=== PATIENT | male | born 1995 | race Caucasian/White ===

== ENCOUNTER 2017-12-08 21:48 | Emergency (ER) | payer OTHER ==
[2017-12-08 22:01] VITALS: RESP 18
--- NOTE | 2017-12-08 23:09 | XR ---
EXAMINATION TYPE: XR shoulder complete LT DATE OF EXAM: 12/08/2017 COMPARISON: NONE HISTORY: Fell on the arm. Pain. TECHNIQUE: 3 views FINDINGS: There is malalignment of the AC joint. This measures 6 mm. Glenohumeral joint is anatomic. I see no fracture. IMPRESSION: Malalignment of the AC joint consistent with ligamentous tear. No fracture seen. There is probably widening and ligamentous tear involving the coracoclavicular ligament.
[2017-12-08] MEDS ORDERED: IBUPROFEN 600 MG STARTER PACK 4 TAB BTL PO STA (23:19)
[2017-12-08] MEDS ORDERED: ACET/COD 300 MG/30 MG STARTER PACK 6 TAB BTL PO STA (23:19)
--- NOTE | 2017-12-08 23:21 | ED ---
Upper Extremity HPI - General Chief Complaint: Extremity Injury, Upper Stated Complaint: Shoulder Pain Time Seen by Provider: 12/08/17 22:11 Source: patient, RN notes reviewed, old records reviewed Mode of arrival: ambulatory Limitations: no limitations - History of Present Illness Initial Comments: This patient is a 22-year-old male chief complaint of left shoulder pain. He reports it today he fell backwards onto the shoulder and back since then he's not able to lift his arm. Patient states that he has occasional numbness and tingling in the fingers and elbow. Your ports for range of motion of the hand and wrist and elbow. No history of injury to the left shoulder. PAtient is right handed. - Related Data Previous Rx's Medication Instructions Recorded Ibuprofen [Motrin] 600 mg PO Q8HR PRN #20 tab 12/08/17 Allergies Allergy/AdvReac Type Severity Reaction Status Date / Time ranitidine Allergy Unknown Verified 12/08/17 22:18 Review of Systems ROS Statement: Those systems with pertinent positive or pertinent negative responses have been documented in the HPI. ROS Other: All systems not noted in ROS Statement are negative. Constitutional: Denies: chills Eyes: Denies: eye pain ENT: Denies: ear pain Respiratory: Denies: cough, dyspnea Cardiovascular: Denies: chest pain Endocrine: Denies: fatigue Gastrointestinal: Denies: abdominal pain, nausea Genitourinary: Denies: urgency Musculoskeletal: Reports: arthralgia Neurological: Denies: headache, weakness Psychiatric: Denies: anxiety, depression Hematological/Lymphatic: Denies: easy bleeding Past Medical History Past Medical History: No Reported History History of Any Multi-Drug Resistant Organisms: None Reported Additional Past Surgical History / Comment(s): clft palate repair Past Psychological History: No Psychological Hx Reported Smoking Status: Never smoker Past Alcohol Use History: None Reported Past Drug Use History: None Reported General Exam - General Exam Comments Initial Comments: Patient is a 22 year old male, moderate discomfort. Limitations: no limitations General appearance: alert, in no apparent distress Head exam: Present: atraumatic, normocephalic, normal inspection Eye exam: Present: normal appearance, PERRL, EOMI. Absent: scleral icterus, conjunctival injection, periorbital swelling ENT exam: Present: normal exam, mucous membranes moist Neck exam: Present: normal inspection. Absent: tenderness, meningismus, lymphadenopathy Respiratory exam: Present: normal lung sounds bilaterally. Absent: respiratory distress, wheezes, rales, rhonchi, stridor Cardiovascular Exam: Present: regular rate, normal rhythm, normal heart sounds. Absent: systolic murmur, diastolic murmur, rubs, gallop, clicks GI/Abdominal exam: Present: soft, normal bowel sounds. Absent: distended, tenderness, guarding, rebound, rigid Left Shoulder Exam: Present: tenderness, swelling, ecchymosis, tenderness over AC joint. Absent: normal inspection, full ROM, laceration Upper Arm exam: Present: normal inspection, full ROM Elbow exam: Present: normal inspection, full ROM Forearm Wrist exam: Present: normal inspection, full ROM Vascular: Present: normal capillary refill Back exam: Present: normal inspection Neurological exam: Present: alert, oriented X3, CN II-XII intact Psychiatric exam: Present: normal affect, normal mood Skin exam: Present: warm (d), dry, intact, normal color. Absent: rash Course Vital Signs 12/08/17 12/09/17 21:57 00:10 Temperature 99.3 F 98.4 F Pulse Rate 69 63 Respiratory 18 18 Rate Blood Pressure 125/87 130/69 O2 Sat by Pulse 100 97 Oximetry Procedures - Orthopedic Splinting/Casting Injury #1 Side: left Upper Extremity Injury Location: shoulder Upper Extremity Immobilizer: sling/shoulder immobilizer Medical Decision Making - Medical Decision Making 22-year-old male with left shoulder pain after a fall. He is tender over the AC joint. X-ray shows evidence of AC separation as well as possible Coracoacromial ligament separation. Patient was placed in a sling, given the short course of pain medicine and follow up with PCP. Discussed ortho follow-up as well. All questions answered return parameters were discussed. Given a note for work. - Radiology Data Radiology results: report reviewed Malalignment of the AC joint consistent with ligamentous tear. No fracture noted. Widening in ligamentous tear involving the coracoclavicular ligament. Disposition Clinical Impression: Derangement of left acromioclavicular joint, Shoulder strain Disposition: HOME SELF-CARE Condition: Good Instructions: Acromioclavicular Separation (ED), Rotator Cuff Injury (ED) Additional Instructions: Patient advised to follow-up with primary care provider and oil program compliance specialist. Take anti-inflammatory medicine as prescribed. Return to emergency department if any alarming signs or symptoms occur. Prescriptions: Ibuprofen [Motrin] 600 mg PO Q8HR PRN #20 tab PRN Reason: Pain Is patient prescribed a controlled substance at d/c from ED?: No When asked, does pt state using other controlled substances?: No If prescribed controlled substance>3 days was MAPS reviewed?: No If opioid is for acute pain is fill amount 7 days or less?: No If Rx opioid, was Start Talking consent form obtained?: No Referrals: None,Stated [Primary Care Provider] - 1-2 days Murtaza Morris DO [Doctor of Osteopathic Medicine] - 1-2 days Time of Disposition: 23:19
[2017-12-09 00:12] VITALS: BP 130/69; PULSE 63; TEMP 98.4
== END 2017-12-09 00:10 | disposition home or self-care (01) ==
LOC: EC 21:48
DX: S46.912A Strain of unspecified muscle, fascia and tendon at shoulder and upper arm level, left arm, initial encounter (principal); S43.102A Unspecified dislocation of left acromioclavicular joint, initial encounter; Z88.8 Allergy status to other drugs, medicaments and biological substances; W01.0XXA Fall on same level from slipping, tripping and stumbling without subsequent striking against object, initial encounter
CPT/HCPCS: 99284

== ENCOUNTER 2021-07-23 15:32 | Emergency (ER) | payer OTHER ==
[2021-07-23 17:54] VITALS: BP 123/64; PULSE 73; RESP 18; TEMP 98.4
--- NOTE | 2021-07-23 19:05 | ED ---
General Adult HPI - General Chief complaint: Recheck/Abnormal Lab/Rx Stated complaint: SOB Source: patient Mode of arrival: ambulatory Limitations: no limitations - History of Present Illness Initial comments: 26-year-old male presents to the emergency room for a work note. Patient states he was sick last week. States that he had a cough and didn't feel well. States he was sick so did not want to come in and get out of bed however he now wants to go back to work in his work once a note. States all his symptoms are resolved and he does not want any testing.Patient has no other complaints at this time including shortness of breath, chest pain, abdominal pain, nausea or vomiting, headache, or visual changes. - Related Data Previous Rx's Medication Instructions Recorded Ibuprofen [Motrin] 600 mg PO Q8HR PRN #20 tab 12/08/17 Allergies Allergy/AdvReac Type Severity Reaction Status Date / Time ranitidine Allergy Unknown Verified 07/23/21 17:54 Review of Systems ROS Statement: Those systems with pertinent positive or pertinent negative responses have been documented in the HPI. ROS Other: All systems not noted in ROS Statement are negative. Past Medical History Past Medical History: No Reported History History of Any Multi-Drug Resistant Organisms: None Reported Additional Past Surgical History / Comment(s): clft palate repair Past Psychological History: No Psychological Hx Reported Smoking Status: Never smoker Past Alcohol Use History: None Reported Past Drug Use History: Marijuana General Exam Limitations: no limitations General appearance: alert, in no apparent distress Head exam: Present: atraumatic Eye exam: Present: normal appearance, PERRL, EOMI. Absent: scleral icterus, conjunctival injection ENT exam: Present: normal exam, mucous membranes moist Neck exam: Present: normal inspection, full ROM. Absent: tenderness Respiratory exam: Present: normal lung sounds bilaterally. Absent: respiratory distress, wheezes Cardiovascular Exam: Present: regular rate, normal rhythm, normal heart sounds GI/Abdominal exam: Present: soft, normal bowel sounds. Absent: distended, tenderness Neurological exam: Present: alert Course Vital Signs 07/23/21 17:51 Temperature 98.4 F Pulse Rate 73 Respiratory 18 Rate Blood Pressure 123/64 O2 Sat by Pulse 99 Oximetry Medical Decision Making - Medical Decision Making Vitals are stable. Patient is well appearing. Patient presenting for a work note. I discussed that we will not be able to backdate a work note to last week. He does not want any other testing done as his symptoms have resolved. Patient was written a note to return to work stating he was seen in the ER today. Disposition Clinical Impression: Normal exam Disposition: HOME SELF-CARE Condition: Good Instructions (If sedation given, give patient instructions): Normal Exam (ED) Additional Instructions: follow up with your doctor. Return for any worsening symptoms. Is patient prescribed a controlled substance at d/c from ED?: No Referrals: Karan Brown MD [STAFF PHYSICIAN] - 1-2 days Time of Disposition: 19:04
== END 2021-07-23 19:11 | disposition home or self-care (01) ==
LOC: EC 15:32
DX: R06.02 Shortness of breath (principal)
CPT/HCPCS: 99281